=== PATIENT | female | born 1990 | race Caucasian/White ===

== ENCOUNTER → 2020-02-19 | Outpatient (CLI) | payer OTHER | LOC: COL.RAD 12:31 | DX: Z31.9 Encounter for procreative management, unspecified (principal); N85.8 Other specified noninflammatory disorders of uterus | CPT/HCPCS: Q9967 ==

== ENCOUNTER → 2022-04-01 | Outpatient (CLI) | payer OTHER | LOC: MHCPAIN 11:10 | DX: M79.18 Myalgia, other site (principal); M79.2 Neuralgia and neuritis, unspecified | CPT/HCPCS: G0463 ==